=== PATIENT | male | born 1930 | race Caucasian/White ===

== ENCOUNTER → 2016-05-19 | Outpatient (CLI) | payer BC ==
[~2016-05-19] MED LIST: AMB5 PO; CMD5 PO; DORZ1SOL6 OPB; FLM4 PO; LVNIS80 SQ; MULT-506 PO; OMEG10007 PO
[2016-05-19 13:37] LABS: BASO % 0.4 %; BASO ABS # 0.01 K/uL (0-0.2); COMPLETE YES; EOS % 4.3 %; HEMATOCRIT 38.3 % (42-52); IG% 0.4 %; LYMPH % 34.8 %; LYMPH ABS # 0.88 K/uL (1.2-3.4); MEAN CORPUSCULAR HEMOGLOBIN 31.4 pg (25-34); MEAN CORPUSCULAR HGB CONC 34.5 g/dl (32-36); MEAN PLATELET VOLUME 9.1 fL (7.4-10.4); MONO % 17.4 %; NEUT % 42.7 %; PLATELET COUNT 156 K/uL (130-400); RED BLOOD COUNT 4.21 M/uL (4.7-6.1); WHITE BLOOD COUNT 2.53 K/uL (4.8-10.8)
[2016-05-19 13:51] LABS: BLOOD UREA NITROGEN 10 mg/dl (7-18); BUN/CREATININE RATIO 10.1 (10-20); CALCIUM 8.8 mg/dl (8.5-10.1); CARBON DIOXIDE 27 mmol/L (21-32); CHLORIDE 106 mmol/L (98-107); GLUCOSE 71 mg/dl (70-99); POTASSIUM 4.5 mmol/L (3.5-5.1); SODIUM 138 mmol/L (136-145)
== END | disposition home or self-care (01) ==
LOC: C.LABBC 11:24
PROVIDERS: ATTEND Internal Medicine Geriatric Medicine
DX: D64.9 Anemia, unspecified (principal); E55.9 Vitamin D deficiency, unspecified; Z79.01 Long term (current) use of anticoagulants; Z86.79 Personal history of other diseases of the circulatory system; Z86.711 Personal history of pulmonary embolism; I26.99 Other pulmonary embolism without acute cor pulmonale

== ENCOUNTER → 2016-12-14 | Outpatient (CLI) | payer BC ==
[2016-12-14 13:17] LABS: BASO % 0.4 %; BASO ABS # 0.01 K/uL (0-0.2); COMPLETE YES; EOS % 2.9 %; HEMATOCRIT 36.8 % (42-52); IG% 0.7 %; LYMPH % 36.5 %; LYMPH ABS # 1.01 K/uL (1.2-3.4); MEAN CELL VOLUME 90.2 fL (80-100); MEAN CORPUSCULAR HEMOGLOBIN 31.1 pg (25-34); MEAN CORPUSCULAR HGB CONC 34.5 g/dl (32-36); MEAN PLATELET VOLUME 8.8 fL (7.4-10.4); MONO % 18.8 %; NEUT % 40.7 %; PLATELET COUNT 154 K/uL (130-400); RED BLOOD COUNT 4.08 M/uL (4.7-6.1); WHITE BLOOD COUNT 2.77 K/uL (4.8-10.8)
[2016-12-14 13:37] LABS: BLOOD UREA NITROGEN 11 mg/dl (7-18); BUN/CREATININE RATIO 10.7 (10-20); CALCIUM 8.7 mg/dl (8.5-10.1); CARBON DIOXIDE 25 mmol/L (21-32); CHLORIDE 103 mmol/L (98-107); GLUCOSE 69 mg/dl (70-99); POTASSIUM 4.3 mmol/L (3.5-5.1); SODIUM 135 mmol/L (136-145)
== END | disposition home or self-care (01) ==
LOC: C.LABBC 11:13
PROVIDERS: ATTEND Internal Medicine Geriatric Medicine
DX: D64.9 Anemia, unspecified (principal); M48.00 Spinal stenosis, site unspecified; Z87.438 Personal history of other diseases of male genital organs; Z79.01 Long term (current) use of anticoagulants; E55.9 Vitamin D deficiency, unspecified; I26.99 Other pulmonary embolism without acute cor pulmonale

== ENCOUNTER → 2017-07-25 | Outpatient (CLI) | payer BC ==
[~2017-07-25] MED LIST changes: -CMD5 PO; +DICL1GEL12 TOP; -FLM4 PO; -LVNIS80 SQ; -MULT-506 PO; -OMEG10007 PO; +PANT40TA PO; +POLY335019 PO; +PREG100C PO; +WARF3TAB PO
[2017-07-25 17:05] LABS: BASO % 0.3 %; BASO ABS # 0.01 K/uL (0-0.2); EOS % 2.9 %; HEMATOCRIT 34.5 % (42-52); HEMOGLOBIN 11.8 g/dL (14.0-18.0); IG# 0.01 K/uL (0.00-0.02); LYMPH % 30.3 %; LYMPH ABS # 1.06 K/uL (1.2-3.4); MEAN CORPUSCULAR HEMOGLOBIN 31.5 pg (25-34); MEAN CORPUSCULAR HGB CONC 34.2 g/dl (32-36); MEAN PLATELET VOLUME 8.7 fL (7.4-10.4); MONO ABS # 0.49 K/uL (0.11-0.59); NEUT % 52.2 %; NEUT ABS # 1.83 K/uL (1.4-6.5); PLATELET COUNT 164 K/uL (130-400); RED CELL DISTRIBUTION WIDTH CV 13.8 % (11.5-14.5); RED CELL DISTRIBUTION WIDTH SD 46.3 fL (36.4-46.3)
[2017-07-25 17:16] LABS: ALBUMIN 3.5 gm/dl (3.4-5.0); ALT/SGPT 16 U/L (12-78); AST/SGOT 16 U/L (15-37); BLOOD UREA NITROGEN 13 mg/dl (7-18); CALCIUM 8.5 mg/dl (8.5-10.1); CARBON DIOXIDE 26 mmol/L (21-32); CREATININE 1.08 mg/dl (0.60-1.40); GLUCOSE 92 mg/dl (70-99); POTASSIUM 4.3 mmol/L (3.5-5.1); SODIUM 130 mmol/L (136-145)
[2017-07-25 17:27] LABS: ALKALINE PHOSPHATASE 51 U/L (45-117); TOTAL PROTEIN 6.9 gm/dl (6.4-8.2)
== END | disposition home or self-care (01) ==
LOC: C.LABBC 13:37
PROVIDERS: ATTEND Internal Medicine Geriatric Medicine
DX: D64.9 Anemia, unspecified (principal); Z86.79 Personal history of other diseases of the circulatory system; Z79.01 Long term (current) use of anticoagulants; M19.90 Unspecified osteoarthritis, unspecified site; M48.00 Spinal stenosis, site unspecified